=== PATIENT | female | born 1990 | race Two or more races ===

== ENCOUNTER → 2020-07-07 | Outpatient (CLI) | payer OTHER | END | disposition home or self-care (01) | LOC: PRENATAL 15:00 | PROVIDERS: ATTEND Obstetrics & Gynecology Maternal & Fetal Medicine | DX: O34.31 Maternal care for cervical incompetence, first trimester (principal); O36.80X1 Pregnancy with inconclusive fetal viability, fetus 1; Z36.89 Encounter for other specified antenatal screening; Z3A.13 13 weeks gestation of pregnancy ==

== ENCOUNTER 2020-08-11 17:38 | Inpatient (IN) | payer OTHER ==
[~2020-08-11] VITALS: Ht 157.5 cm; Wt 82.6 kg
[2020-08-13] MEDS ORDERED: PROMETRIUM200 MG PO (08:12)
== END 2020-08-13 12:44 | disposition home or self-care (01) | DRG 819 ==
LOC: OB/GYN 17:38
PROVIDERS: ADMIT Specialist; ATTEND Specialist
PROC: 0UVC7ZZ Restriction of Cervix, Via Natural or Artificial Opening (ICD-10-PCS; principal; 2020-08-12 15:15)
DX: O34.32 Maternal care for cervical incompetence, second trimester (principal); Z3A.18 18 weeks gestation of pregnancy

== ENCOUNTER → 2020-08-17 | Outpatient (CLI) | payer OTHER ==
[~2020-08-17] MED LIST: PROMETRIUM200 MG PO
== END | disposition home or self-care (01) ==
LOC: PRENATAL 09:00
PROVIDERS: ATTEND Obstetrics & Gynecology Maternal & Fetal Medicine
DX: O35.0XX1 Maternal care for (suspected) central nervous system malformation in fetus, fetus 1 (principal); O35.3XX1 Maternal care for (suspected) damage to fetus from viral disease in mother, fetus 1; O98.512 Other viral diseases complicating pregnancy, second trimester; O09.212 Supervision of pregnancy with history of pre-term labor, second trimester; O34.33 Maternal care for cervical incompetence, third trimester; Z36.89 Encounter for other specified antenatal screening; Z3A.19 19 weeks gestation of pregnancy

== ENCOUNTER → 2020-09-15 | Outpatient (CLI) | payer OTHER | END | disposition home or self-care (01) | LOC: PRENATAL 10:00 | PROVIDERS: ATTEND Obstetrics & Gynecology Maternal & Fetal Medicine | DX: O26.842 Uterine size-date discrepancy, second trimester (principal); O34.32 Maternal care for cervical incompetence, second trimester; Z36.89 Encounter for other specified antenatal screening; Z3A.22 22 weeks gestation of pregnancy ==

== ENCOUNTER → 2020-10-21 | Outpatient (CLI) | payer OTHER ==
[~2020-10-21] MED LIST changes: +CEFADROXIL500 MG PO; +FUSION PLUS CA1 EACH PO; +IBU400 MG PO; +NIFEDIPINE20 MG PO; +PRENATAL TABLE1 EAC1 PO
== END | disposition home or self-care (01) ==
LOC: PRENATAL 15:00
PROVIDERS: ATTEND Obstetrics & Gynecology Maternal & Fetal Medicine
DX: O26.843 Uterine size-date discrepancy, third trimester (principal); O34.33 Maternal care for cervical incompetence, third trimester; O44.03 Complete placenta previa NOS or without hemorrhage, third trimester; Z36.89 Encounter for other specified antenatal screening; Z3A.28 28 weeks gestation of pregnancy

== ENCOUNTER 2020-10-26 19:31 | Inpatient (IN) | payer OTHER ==
[~2020-10-26] VITALS: Ht 157.5 cm; Wt 90.7 kg
[~2020-10-26 19:31] MED LIST changes: -CEFADROXIL500 MG PO; -FUSION PLUS CA1 EACH PO; -IBU400 MG PO; -NIFEDIPINE20 MG PO; -PRENATAL TABLE1 EAC1 PO
[2020-10-26] MEDS ORDERED: PRENATAL TABLE1 EAC1 PO (23:19)
== END 2020-10-29 19:22 | disposition home or self-care (01) | DRG 831 ==
LOC: LDR 19:31
PROVIDERS: ADMIT Specialist; ATTEND Specialist
PROC: 4A1HXFZ Monitoring of Products of Conception, Cardiac Rhythm, External Approach (ICD-10-PCS; principal; 2020-10-26)
PROC: BY4FZZZ Ultrasonography of Third Trimester, Single Fetus (ICD-10-PCS; 2020-10-29)
DX: O14.03 Mild to moderate pre-eclampsia, third trimester (principal); O34.33 Maternal care for cervical incompetence, third trimester; O13.3 Gestational [pregnancy-induced] hypertension without significant proteinuria, third trimester; Z3A.28 28 weeks gestation of pregnancy

== ENCOUNTER 2020-11-18 14:28 | Outpatient (CLI) | payer OTHER ==
[~2020-11-18 14:28] MED LIST changes: +PRENATAL TABLE1 EAC1 PO
== END 2020-11-18 16:00 | disposition home or self-care (01) ==
LOC: PRENATAL 14:28
PROVIDERS: ATTEND Obstetrics & Gynecology Maternal & Fetal Medicine
DX: O26.843 Uterine size-date discrepancy, third trimester (principal); O34.33 Maternal care for cervical incompetence, third trimester; O35.0XX1 Maternal care for (suspected) central nervous system malformation in fetus, fetus 1; Z36.89 Encounter for other specified antenatal screening; Z3A.32 32 weeks gestation of pregnancy

== ENCOUNTER 2020-12-03 15:10 | Inpatient (IN) | payer OTHER ==
[~2020-12-03] VITALS: Ht 157.5 cm; Wt 90.7 kg
[2020-12-04] MEDS ORDERED: CEFADROXIL500 MG PO (13:51)
== END 2020-12-04 17:35 | disposition home or self-care (01) | DRG 832 ==
LOC: LDR 15:10
PROVIDERS: ADMIT Specialist; ATTEND Specialist
PROC: 4A1HXFZ Monitoring of Products of Conception, Cardiac Rhythm, External Approach (ICD-10-PCS; principal; 2020-12-03)
DX: O60.03 Preterm labor without delivery, third trimester (principal); O26.873 Cervical shortening, third trimester; O23.43 Unspecified infection of urinary tract in pregnancy, third trimester; Z3A.34 34 weeks gestation of pregnancy

== ENCOUNTER 2020-12-10 17:14 | Outpatient (CLI) | payer OTHER ==
[~2020-12-10 17:14] MED LIST changes: +CEFADROXIL500 MG PO
[2020-12-10] MEDS ORDERED: NIFEDIPINE20 MG PO (23:13)
== END 2020-12-11 15:14 | disposition home or self-care (01) ==
LOC: OBS/DEL 17:14
PROVIDERS: ATTEND Specialist
DX: O14.03 Mild to moderate pre-eclampsia, third trimester (principal); O98.813 Other maternal infectious and parasitic diseases complicating pregnancy, third trimester; O34.33 Maternal care for cervical incompetence, third trimester; R82.71 Bacteriuria; Z3A.35 35 weeks gestation of pregnancy

== ENCOUNTER 2020-12-17 16:38 | Inpatient (IN) | payer OTHER ==
[~2020-12-17] VITALS: Ht 157.5 cm; Wt 92.5 kg
[~2020-12-17 16:38] MED LIST changes: +NIFEDIPINE20 MG PO
[2020-12-19] MEDS ORDERED: IBU400 MG PO (13:15)
[2020-12-19] MEDS ORDERED: FUSION PLUS CA1 EACH PO (13:15)
== END 2020-12-19 13:33 | disposition home or self-care (01) | DRG 806 ==
LOC: LDR 16:38 → OB/GYN 12-18 00:32
PROVIDERS: ADMIT Specialist; ATTEND Specialist
PROC: 10E0XZZ Delivery of Products of Conception, External Approach (ICD-10-PCS; principal; 2020-12-17)
PROC: 0UQGXZZ Repair Vagina, External Approach (ICD-10-PCS; 2020-12-17)
PROC: 0UQMXZZ Repair Vulva, External Approach (ICD-10-PCS; 2020-12-17)
PROC: 10907ZC Drainage of Amniotic Fluid, Therapeutic from Products of Conception, Via Natural or Artificial Opening (ICD-10-PCS; 2020-12-17)
PROC: 4A1HXFZ Monitoring of Products of Conception, Cardiac Rhythm, External Approach (ICD-10-PCS; 2020-12-17)
DX: O60.14X0 Preterm labor third trimester with preterm delivery third trimester, not applicable or unspecified (principal); O71.4 Obstetric high vaginal laceration alone; Z37.0 Single live birth; O71.82 Other specified trauma to perineum and vulva; O14.04 Mild to moderate pre-eclampsia, complicating childbirth; Z3A.36 36 weeks gestation of pregnancy